=== PATIENT | female | born 1985 | race Caucasian/White ===

== ENCOUNTER → 2020-06-19 | Emergency (ER) | payer MEDICAID ==
[~2020-06-19] VITALS: Ht 175.3 cm; Wt 63.5 kg
[~2020-06-19] MED LIST: ONDANSETRON ODT 4 MG TAB PO ONE; cefTRIAXone SOD 1,000 MG VL IM ONE; methylPREDNISolone SOD SUCC 125 MG/2 ML VL IM ONE
[2020-06-19 16:05] VITALS: BP 144/102
== END | disposition home or self-care (01) ==
LOC: ER 15:16
DX: K02.9 Dental caries, unspecified (principal); K04.7 Periapical abscess without sinus
CPT/HCPCS: 96372; 99284; J0696; J2930; Q0162

== ENCOUNTER 2020-08-05 08:12 | Emergency (ER) | payer MEDICAID, OTHER ==
[~2020-08-05] VITALS: Ht 177.8 cm; Wt 58.1 kg
[2020-08-05 09:05] VITALS: BP 129/67
[2020-08-05] MEDS ORDERED: METHOCARBAMOL 500 MG TAB PO ONE (09:30)
[2020-08-05] MEDS ORDERED: ACETAMINOPHEN 500 MG TAB PO ONE (09:30)
== END 2020-08-05 11:47 | disposition home or self-care (01) ==
LOC: ER 08:12
DX: S16.1XXA Strain of muscle, fascia and tendon at neck level, initial encounter (principal); M25.512 Pain in left shoulder; R42 Dizziness and giddiness; R10.9 Unspecified abdominal pain; V89.2XXA Person injured in unspecified motor-vehicle accident, traffic, initial encounter; Y93.89 Activity, other specified; Y92.89 Other specified places as the place of occurrence of the external cause; Y99.8 Other external cause status
CPT/HCPCS: 70450; 72040; 72070; 73030

== ENCOUNTER 2021-03-13 09:45 | Emergency (ER) | payer SELFPAY ==
[~2021-03-13] VITALS: Ht 175.3 cm; Wt 61.2 kg
[2021-03-13 10:03] VITALS: BP 109/72
[2021-03-13] MEDS ORDERED: ACETAMINOPHEN 500 MG TAB PO ONE (10:30)
== END 2021-03-13 10:47 | disposition home or self-care (01) ==
LOC: ER 09:45
DX: S92.312A Displaced fracture of first metatarsal bone, left foot, initial encounter for closed fracture (principal); Z91.048 Other nonmedicinal substance allergy status; X50.1XXA Overexertion from prolonged static or awkward postures, initial encounter; Y93.89 Activity, other specified; Y92.89 Other specified places as the place of occurrence of the external cause; Y99.8 Other external cause status
CPT/HCPCS: 29515; 73630; 99283; J7030